=== PATIENT | male | born 1985 | race Two or more races ===

== ENCOUNTER 2025-03-27 17:02 | Emergency (ER) | payer SELFPAY ==
[~2025-03-27] VITALS: Ht 185.4 cm; Wt 87.7 kg
[2025-03-27 17:15] VITALS: TEMP 98.1
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
[2025-03-27 18:06] LABS: Hematocrit 42.7 % (41.0-53.0); Hemoglobin 14.9 g/dL (13.5-17.5); Mean Corpuscular Hemoglobin 28.4 pg (28.0-32.0); Mean Corpuscular Volume 81.6 fL (80.0-100.0); Nucleated Red Blood Cells % 0.2 %
[2025-03-27 18:09] LABS: Chloride 102 mmol/L (98-107); Potassium 4.2 mmol/L (3.5-5.1); Sodium 138 mmol/L (136-145)
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
[2025-03-27 18:10] LABS: Anion Gap 5 (5-15); Calcium 9.0 mg/dL (8.7-10.4); Carbon Dioxide 31 mmol/L (20-31)
[2025-03-27 18:15] LABS: BUN/Creatinine Ratio 17.0 (10.0-20.0); Blood Urea Nitrogen 16 mg/dL (9-23); Glucose 75 mg/dL (74-106)
[2025-03-27] MEDS ORDERED: IBUP-1455 PO (18:54)
[2025-03-27] MEDS ORDERED: CYCL-837 PO (18:54)
[2025-03-27 19:08] VITALS: BP 131/82; PULSE 105; RESP 18; O2SAT 95
== END 2025-03-27 19:08 | disposition home or self-care (01) ==
LOC: ER 17:02
DX: G44.209 Tension-type headache, unspecified, not intractable (principal); Z79.899 Other long term (current) drug therapy
CPT/HCPCS: 36415; 70450; 80048; 85025